=== PATIENT | male | born 1995 | race African-American/Black ===

== ENCOUNTER 2018-03-22 23:04 | Emergency (ER) | payer SELFPAY ==
[~2018-03-22] VITALS: Ht 185.4 cm; Wt 122.5 kg
[2018-03-22] MEDS ORDERED: NIFEdipine 10 MG CAP PO ONE (23:45)
[2018-03-23 00:01] LABS: Basophils # (auto) 0 uL; Monocytes # (auto) 1.5 uL; Monocytes % (auto) 12.4 % (0.0-12.0); Red Cell Distribution Width 14.5 % (11.8-14.3)
[2018-03-23 00:03] LABS: Basophils % (auto) 0.3 % (0.0-2.0); Eosinophils # (auto) 0.1 uL; Eosinophils % (auto) 1.2 % (0.0-7.0); Hematocrit 54.8 % (41.0-53.0); Lymphocytes # (auto) 1.3 uL; Lymphocytes % (auto) 10.8 % (10.0-50.0); Mean Corpuscular Hemoglobin 24.5 pg (28.0-32.0); Neutrophils # (auto) 9.2 uL; Neutrophils % (auto) 75.3 % (37.0-80.0); Platelet Count (auto) 155 10^3/uL (140-450); Red Blood Cells 6.94 10^6/uL (4.5-5.90); White Blood Cell 12.3 10^3/uL (4.4-10.8)
[2018-03-23 00:14] LABS: INR 0.93 (0.9-1.15); Partial Thromboplastin Time 30.5 sec (23.78-33.04)
[2018-03-23 00:19] LABS: Alanine Aminotransferase 39 U/L (16-61); Albumin 2.8 g/dL (3.4-5.0); Anion Gap 7 (5-15); Aspartate Aminotransferase 26 U/L (15-37); BUN/Creatinine Ratio 8.2; Blood Urea Nitrogen 13 mg/dL (7-18); Calcium 8.1 mg/dL (8.5-10.1); Carbon Dioxide 28 mmol/L (21-32); Chloride 103 mmol/L (98-107); GFR African American 71 mL/min; GFR Non-African American 59 mL/min; Glucose 95 mg/dL (74-106); Magnesium 2.2 mg/dL (1.6-2.6); Potassium 3.9 mmol/L (3.5-5.1); Sodium 138 mmol/L (136-145)
[2018-03-23 00:24] LABS: Alkaline Phosphatase 74 U/L (45-117); Bilirubin, Total 0.5 mg/dL (0.2-1.0); Total Protein 7.1 g/dL (6.4-8.2)
[2018-03-23] MEDS ORDERED: CLINDAMYCIN 900MG IV 50 ML IV ONE (00:30)
[2018-03-23] MEDS ORDERED: SODIUM CHLORIDE 0.9% 500 ML IV ONE (00:30)
[2018-03-23] MEDS ORDERED: DEXAMETHASONE INJECTION 10 MG in D5W 5% 50 ML IV ONE (00:30)
[2018-03-23] MEDS ORDERED: KETOROLAC TROMETH 30 MG/ML 1ML VIAL IV ONE (00:30)
[2018-03-23] MEDS ORDERED: DEXAMETHASONE SOD PHOS 10MG/1ML VIAL INJ ONE (01:16)
[2018-03-23 02:16] VITALS: BP 168/107
[2018-03-23] MEDS ORDERED: DEXAMETHASONE INJECTION 10 MG in D5W 5% 50 ML IV SCH (10:00)
== END 2018-03-23 02:49 | disposition home or self-care (01) ==
LOC: ER 23:09
DX: J03.90 Acute tonsillitis, unspecified (principal); I10 Essential (primary) hypertension
CPT/HCPCS: 36415; 71046; 80053; 83735; 83880; 84443; 84484; 85025; 85610; 85730; 86308; 93005; 94761; 96365; 96367; 96375; 99285; J1100; J1885; J3490; J7030; J7060